=== PATIENT | female | born 2000 | race Caucasian/White ===

== ENCOUNTER → 2021-04-22 14:16 | Outpatient (CLI) | payer OTHER, SELFPAY ==
[2021-04-25 15:23] LABS: Hepatitis Be Ab Negative (Negative); V-Zoster IgG (Immunity) 186 index (Immune >165)
[2021-04-29 05:07] LABS: QNTFERON TB Mitogen Value > 10.00 IU/mL (.); QNTFERON TB Nil Value 0.02 IU/mL (.); QNTFERON TB1+ Ag Value 0.03 IU/mL (.); QNTFERON TB2+ Ag Value 0.02 IU/mL (.)
[2021-04-29 12:41] LABS: QNTIFERON TB Positive Criteria Negative (Negative)
== END ==
PROVIDERS: PCP Physician Assistant Surgical; Referring Provider Physician Assistant Surgical; Visit Provider Physician Assistant Surgical
DX: Z00.00 Encounter for general adult medical examination without abnormal findings (principal)
CPT/HCPCS: 36415; 86480; 86707; 86787